=== PATIENT | male | born 1985 | race Caucasian/White ===

== ENCOUNTER 2022-06-06 11:49 | Emergency (ER) | payer BC, SELFPAY ==
[2022-06-06 12:26] VITALS: BP 128/85; PULSE 88; RESP 18; O2SAT 97; BMI 31.6
--- NOTE | 2022-06-06 12:35 | ED_ITS ---
HPI - General Adult General Time Seen by Provider: 12:36 Date Seen: 06/06/22 Chief complaint: Dental/Oral/Mouth Injury/Pain Stated complaint: Lip Laceration Time Seen by Provider: 06/06/22 12:35 Source: patient History of Present Illness HPI narrative: Preston is a 37-year-old male with no past medical history presents emerged department with a facial injury. Patient states that early this morning patient was kicked in the mouth by a horse. His last tetanus was 3 years ago. Patient was attending to a clients horse, it was startled and kicked forward striking the patient in the lower chin area. He sustained a complex laceration of lower left area, denies any dental injury or jaw pain. No other concerns at this time. Related Data Home Medications Medication Instructions Recorded Confirmed No Known Home Medications 06/06/22 06/06/22 Allergies Allergy/AdvReac Type Severity Reaction Status Date / Time No Known Drug Allergies Allergy Verified 06/06/22 12:25 Review of Systems Status of ROS: Reports: 10 or more systems reviewed and unremarkable except as noted in History and below [facility] Social History Smoking Status: Never smoker Do you use any of these nicotine containing products: None Second hand tobacco smoke exposure: No How often do you have a drink containing alcohol: 4 or more times a week How many standard drinks containing alcohol do you have on a typical day: 1 or 2 How often do you have six or more drinks on one occasion: Less than monthly AUDIT-C Alcohol total score: 5 Non-prescribed substance use: denies use service: No Exam Narrative: Exam Narrative: General: NAD sitting comfortably. HEENT: Pupils equal round reactive to light, extraocular muscles intact, Dentition intact, left lower lip, complex vertical laceration involving the vermilion border, measuring 2 cm in length. Laceration extends to the bugle side, bleeding controlled, edges are approximate. No other intraoral injury. Nontender to palpation the TMJ, or lower mandible area, no swelling or bruising. Active open close mouth without any difficulty Heart: NSR, S1 S2 Lungs: CTAB/L Abdomen: soft non tender Muscle skeletal: Moving upper extremities without any difficulty Neuro: Alert awake and oriented x3 Const: Vital Signs, click to edit/add: Vital Signs - 24 hr 06/06/22 12:26 Pulse Rate [Pulse Oximeter] 88 Respiratory Rate 18 Blood Pressure [Ri ght Upper Arm] 128/85 Pulse Oximetry 97 Oxygen Delivery Me thod Room Air Course Course Hospital Course: 1:00 PM: AIDET performed. Workup will include laceration repair, please see procedure note, patient is updated on his tetanus status, plan to irrigate thoroughly with normal saline 1 L. patient was in agreement Reevaluation(s) Reevaluation #1: Laceration repair complete, patient tolerated procedure well, plan would be to discharge he will have sutures removed in the next 5-7 days, return precautions given. All questions answered. Time: 14:17 Vital Signs Vital signs: Initial Vital Signs Temperature Source Temporal Artery Scan 06/06/22 12:26 Pulse Rate 88 06/06/22 12:26 Pulse Rhythm 06/06/22 12:26 Respiratory Rate 18 06/06/22 12:26 Blood Pressure 128/85 06/06/22 12:26 Blood Pressure Mean 99 06/06/22 12:26 Blood Pressure Position Sitting 06/06/22 12:26 Pulse Oximetry 97 06/06/22 12:26 Oxygen Delivery Method 06/06/22 12:26 Vital Signs Pulse Rate 88 06/06/22 12:26 Respiratory Rate 18 06/06/22 12:26 Blood Pressure 128/85 06/06/22 12:26 Pulse Oximetry 97 06/06/22 12:26 Oxygen Delivery Method 06/06/22 12:26 Pulse Rate 88 06/06/22 12:26 Respiratory Rate 18 06/06/22 12:26 Blood Pressure 128/85 06/06/22 12:26 Pulse Oximetry 97 06/06/22 12:26 Oxygen Delivery Method 06/06/22 12:26 Discharge Plan Discharge Clinical Impression: Complicated laceration of lip Patient Disposition: Home, Self-Care Condition: Improved Instructions: Laceration (ED), Facial Laceration (ED) Additional Instructions: To remove sutures in 5-7 days by primary care provider or Urgent Care. Activity Level: Activity as Tolerated Prescriptions: No Action No Known Home Medications Follow Up/Referrals: Provider,Not a Local [Primary Care Provider] - Stand Alone Forms: [facility] Info Instructions Procedures Laceration Laceration 1: Written consent by: patient Site: lip Side (If applicable): left Size (cm): 2 Description: involves jennifer border and involves lid margin Depth: [id number] Local Anesthetic: lidocaine 1% Amount of anesthesia used (mL): 2.5 Pre-repair: irrigated extensively Skin layer closed with: nylon Size (cm): 6-0 Number of sutures: 6 Technique: simple, interrupted Conclusion: patient tolerated procedure
--- NOTE | 2022-06-06 13:06 | ED.NURSE ---
did irrigate mouth wound with 500 ml of ns.
[2022-06-06 14:16] VITALS: PULSE 96; O2SAT 97
== END 2022-06-06 14:18 | disposition home or self-care (01) ==
PROVIDERS: Emergency Provider Student in an Organized Health Care Education/Training Program
DX: S01.511A Laceration without foreign body of lip, initial encounter (principal); W55.12XA Struck by horse, initial encounter
CPT/HCPCS: 12011; 99283; 99284